=== PATIENT | female | born 1985 | race Caucasian/White ===

== ENCOUNTER 2016-06-23 21:36 | Emergency (ER) | payer OTHER ==
[~2016-06-23] VITALS: Ht 160 cm; Wt 71.5 kg
[~2016-06-23 21:36] MED LIST: ADVIL,NUPRIN,M200 MG PO; BIRTH CONTROL; ENDOCET 5-3251 EACH PO; FIORICET WI1 CAPSULE PO; MOTRIN800 MG PO; NOHOMEMEDS; ORTHO TRI-CYCL1 EACH PO; TRAMADOL HCL50 MG PO
[2016-06-23 22:12] LABS: HEMATOCRIT 41.3 % (36.0-46.0); MCH 28.9 PG (29.0-34.0); MCHC 32.4 G/DL (30.0-36.0); MCV 89.2 FL (83-99); RBC DIS.WIDTH-CV 12.7 % (11.8-14.6); RBC DIS.WIDTH-SD 41.5 % (39-53); RED BLOOD COUNT 4.63 M/uL (3.80-5.20); WHITE BLOOD COUNT 13.5 K/uL (4.1-10.2)
[2016-06-23 22:16] LABS: ADD MIUA? YES; BILIRUBIN NEGATIVE; BLOOD MODERATE; COLOR YELLOW ((YELLOW)); GLUCOSE (STRIP) NEGATIVE; KETONES NEGATIVE; LEUKOCYTES LARGE; NITRITE NEGATIVE; PROTEIN (STRIP) 100; SPECIFIC GRAVITY 1.013 (1.000-1.030); UROBILINOGEN 0.2 MG/DL (0.2-1.0)
[2016-06-23 22:21] LABS: CHLORIDE 108 mEq/L (99-109); SODIUM 138 mEq/L (136-147)
[2016-06-23 22:23] LABS: GLUCOSE 96 mg/dL (70-99)
[2016-06-23 22:24] LABS: ANION GAP 8 MEQ/L (2-14)
[2016-06-23 22:27] LABS: GFR ESTIMATE (CALCULATED) > 59 mL/min/
[2016-06-23 22:28] LABS: UREA NITROGEN (BUN) 8 mg/dL (9-23)
[2016-06-23 22:37] LABS: QUANTITATIVE HCG < 4.0 MIU/ML
[2016-06-23 22:41] LABS: BACTERIA 2+ /HPF; EPITHELIAL CELLS 1+ /HPF; MUCUS NONE SEEN /LPF; RED BLOOD CELLS 15-20 /HPF (0-5); UCUL ADDED? YES; WHITE BLOOD CELLS TNTC /HPF (0-5)
[2016-06-23 22:56] LABS: MEAN PLAT.VOLUME 11.1 uM^3 (9.5-12.4); PLAT.SUFFICIENCY ADEQUATE; PLATELET COUNT 307 K/uL (156-360)
[2016-06-24] MEDS ORDERED: ZOFRAN ODT4 MG PO (00:30)
[2016-06-24] MEDS ORDERED: MOTRIN800 MG PO (00:30)
[2016-06-24] MEDS ORDERED: ZITHROMAX250 MG PO (00:30)
[2016-06-24] MEDS ORDERED: KEFLEX500 MG PO (00:30)
[2016-06-24 01:00] VITALS: BP 140/94
== END 2016-06-24 01:01 | disposition home or self-care (01) ==
LOC: EME 21:36
DX: N10 Acute pyelonephritis (principal); N20.0 Calculus of kidney; J98.4 Other disorders of lung; Z87.442 Personal history of urinary calculi; F17.200 Nicotine dependence, unspecified, uncomplicated
CPT/HCPCS: 74176; 80048; 81003; 84702; 85027; 87077; 87086; 99281; 99284; J0696; J1885

== ENCOUNTER 2016-09-20 17:47 | Emergency (ER) | payer OTHER ==
[~2016-09-20] VITALS: Ht 162.6 cm; Wt 81.7 kg
[~2016-09-20 17:47] MED LIST changes: +KEFLEX500 MG PO; +ZITHROMAX250 MG PO; +ZOFRAN ODT4 MG PO
[2016-09-20 18:40] LABS: HEMATOCRIT 37.8 % (36.0-46.0); MCH 28.7 PG (29.0-34.0); MCHC 32.5 G/DL (30.0-36.0); MCV 88.1 FL (83-99); RBC DIS.WIDTH-CV 12.4 % (11.8-14.6); RBC DIS.WIDTH-SD 40.1 % (39-53); RED BLOOD COUNT 4.29 M/uL (3.80-5.20); WHITE BLOOD COUNT 10.6 K/uL (4.1-10.2)
[2016-09-20 18:59] LABS: CHLORIDE 109 mEq/L (99-109); POTASSIUM 4.8 mEq/L (3.7-5.4); SODIUM 142 mEq/L (136-147)
[2016-09-20 19:01] LABS: GLUCOSE 103 mg/dL (70-99)
[2016-09-20 19:02] LABS: ANION GAP 8 MEQ/L (2-14)
[2016-09-20 19:03] LABS: TOTAL BILIRUBIN 0.3 mg/dL (0.0-1.0)
[2016-09-20 19:04] LABS: ALKALINE PHOSPHATASE 126 IU/L (3-129)
[2016-09-20 19:05] LABS: GFR ESTIMATE (CALCULATED) > 59 mL/min/
[2016-09-20 19:06] LABS: UREA NITROGEN (BUN) 10 mg/dL (9-23)
[2016-09-20 19:08] LABS: LIPASE 17 U/L (1.0-51.0)
[2016-09-20 19:15] LABS: QUANTITATIVE HCG < 4.0 MIU/ML
[2016-09-20 19:27] LABS: MEAN PLAT.VOLUME 11.8 uM^3 (9.5-12.4); PLAT.SUFFICIENCY ADEQUATE; PLATELET COUNT 239 K/uL (156-360)
[2016-09-20] MEDS ORDERED: ZOFRAN ODT4 MG PO (20:30)
[2016-09-20] MEDS ORDERED: PERCOCET 5/31 TABLET PO (20:30)
[2016-09-20 20:55] LABS: ADD MIUA? YES; BILIRUBIN NEGATIVE; BLOOD LARGE; COLOR YELLOW ((YELLOW)); GLUCOSE (STRIP) NEGATIVE; KETONES 5; LEUKOCYTES NEGATIVE; NITRITE NEGATIVE; PROTEIN (STRIP) 30; SPECIFIC GRAVITY 1.015 (1.000-1.030); UROBILINOGEN 0.2 MG/DL (0.2-1.0)
[2016-09-20 20:57] VITALS: BP 130/97
[2016-09-20 21:07] LABS: BACTERIA NONE SEEN /HPF; EPITHELIAL CELLS RARE /HPF; MUCUS 2+ /LPF; RED BLOOD CELLS TNTC /HPF (0-5); UCUL ADDED? YES; WHITE BLOOD CELLS 0-5 /HPF (0-5)
== END 2016-09-20 20:58 | disposition home or self-care (01) ==
LOC: EME 17:47
PROVIDERS: Physician Assistant
DX: N20.0 Calculus of kidney (principal); Z87.442 Personal history of urinary calculi; F17.200 Nicotine dependence, unspecified, uncomplicated
CPT/HCPCS: 74176; 80053; 81003; 83690; 84702; 85027; 87086; 99281; 99284; J1885; J2405; J3010; J7030